=== PATIENT | male | born 1955 | race Caucasian/White ===

== ENCOUNTER 2019-01-01 13:00 | Emergency (ER) | payer OTHER ==
[2019-01-01] MEDS ORDERED: Acetaminophen 325 MG TAB ONE (13:50)
--- NOTE | 2019-01-01 14:13 | RAD ---
3 views left ankle: 01/01/2019 COMPARISON: None HISTORY: Ankle pain and swelling, injury FINDINGS: There is medial soft tissue swelling. The talar dome and ankle mortise appear intact. No di splaced fracture or evidence of dislocation. There is atherosclerotic calcification anteriorly at the level of the left ankle joint. There is enthesophyte formation at the origin of the plantar apone urosis. IMPRESSION: Medial soft tissue swelling. No displaced fracture or dislocation.
--- NOTE | 2019-01-01 14:57 | RAD ---
Exam: Chest one view HISTORY:Cough Comparison: None FINDINGS: Cardiac silhouette: Normal Aorta: Elongation Pulmonary vessels: Normal Costophrenic angles: Clear LUNGS: No masses or consolidation. Patchy interstitial opacities are nonspecific. Pneumothorax: None Osseous abnormalities: Old left clavicle fracture. IMPRESSION: No acute cardiopulmonary process.
[2019-01-01] MEDS ORDERED: Cephalexin 250 MG CAP ONE (15:42)
== END 2019-01-01 15:45 ==
LOC: ERS 13:00
DX: L03.116 Cellulitis of left lower limb (principal)
CPT/HCPCS: 71045; 87804

== ENCOUNTER 2019-01-03 10:59 | Inpatient (IN) | payer OTHER ==
[2019-01-03] MEDS ORDERED: Piperacillin/Tazobactam 4.5 GM VIAL ONE (11:38)
[2019-01-03 12:11] LABS: #Lymphocytes 1.7 thou/uL (1.20-3.40); #Monocytes 1.9 thou/uL (0.11-0.59); #Neutrophils 12.7 thou/uL (1.40-6.50); %Basophils 0.2 % (0.0-1.0); %Eosinophils 0.1 % (0.0-10.0); %Lymphocytes 10.5 % (21.0-51.0); %Monocytes 11.4 % (0.0-10.0); %Neutrophils 77.7 % (42.0-75.0); Hemoglobin 12.6 g/dL (14.0-18.0); Mean Corpuscular Hemoglobin 30.2 pg (27.0-31.0); Mean Corpuscular Volume 91.4 fL (78.0-98.0); Mean Platelet Volume 9.2 fL (7.4-10.4); Platelet Count 207 thou/uL (130-400); RBC Distribution Width 11.3 % (11.5-14.5); Red Blood Cell (RBC) Count 4.16 mill/uL (4.70-6.10); White Blood Cell (WBC) Count 16.3 thou/uL (4.8-10.8)
[2019-01-03 12:34] LABS: ALT (SGPT) 18 U/L (8-55); AST (SGOT) 21 U/L (5-34); Albumin 3.7 g/dL (3.4-4.8); Alkaline Phosphatase 76 U/L (40-110); Anion Gap 13 mmol/L (10-20); BUN (Urea Nitrogen) 13 mg/dL (8.4-25.7); Bilirubin, Total 0.6 mg/dL (0.2-1.2); Calc. Creatinine Clearance 0 mL/min (70-130); Carbon Dioxide 25 mmol/L (23-31); Chloride 97 mmol/L (98-107); Estimated GFR-MDRD 72; Globulin 3.5 g/dL (2.4-3.5); Glucose 105 mg/dL (80-115); Potassium 3.6 mmol/L (3.5-5.1); Protein, Total 7.2 g/dL (5.8-8.1); Sodium 131 mmol/L (136-145)
[2019-01-03] MEDS ORDERED: HYDROcodone/Acetaminophen 5/325 mg Tablet ONE (13:51)
[2019-01-03] MEDS ORDERED: Ondansetron ODT 4 MG TAB PO PRN (14:05)
[2019-01-03] MEDS ORDERED: Senokot S 8.6-50 MG TAB PO PRN (14:05)
[2019-01-03 16:19] VITALS: BMI 27.8
--- NOTE | 2019-01-03 16:52 | PDOC.EVN ---
Event Note - Event Note Event Note: Date/Time: 01/03/19 0396 I personally performed or re-performed the physical examination and medical decision making. I have verified all resident documentation or findings, including history, physical exam and/or medical decision making. Please see Dr. Hampton's H&P for additional details. In summary, patient is a 63 yo WM with an unremarkable PMH who presents with a CC of left leg redness and pain that has been present and worsening for 1 week. Reports fever/chills. Was seen in ER 2 days ago and d/c on keflex. Patient did not improve and returned to ER today. ON exam, marked erythema and warmth in lower left leg with streaking into medial left thigh. Exam otherwise unremarkable. Labs show elevated WBC at 16. Na 131. Plan to admit to medical for cellulitis, failed outpatient abx. Start vanc and clinda. I suspect this is group A strep. Will monitor for signs of improvement. Likely needs 2-3 days of IV abx therapy.
[2019-01-03] MEDS: Clindamycin/D5W 300 MG/50 ML BAG IVPB SCH ×2 (17:31→23:35)
[2019-01-03] MEDS: Acetaminophen 325 MG TAB PO PRN (20:47)
--- NOTE | 2019-01-04 | HP ---
RESIDENT: Mathew Hampton DO HISTORY OF PRESENT ILLNESS: This is a 63-year-old male, who [facility] complaint of left lower extremity redness and pain. He was seen in the emergency room 2 days ago and was started on Keflex. However, since then, redness and pain has increased. The patient states that approximately 1 week ago, he hit his leg on a bunk which did result in a bruise. Since then, that bruise has become red and started to expand. The patient also complains of some chills associated with the redness. In the ER, the patient was noted to have significant redness which extended up his legs along with an elevated white count. The patient was given vanc and Zosyn in the emergency room and called for admission. PAST MEDICAL HISTORY: 1. BPH PAST SURGICAL HISTORY: None. SOCIAL HISTORY: The patient denies smoking, alcohol, or recreational drug use. FAMILY HISTORY: Noncontributory. CURRENT MEDS: 1. Keflex 500mg QID 2. terazosin 2mg 3. Tylenol 500mg TID PRN ALLERGIES: None REVIEW OF SYSTEMS: GENERAL: The patient complains of chills. Denies fever or fatigue. HEENT: Denies nasal congestion, sore throat, headache, change in vision. CV: The patient denies chest pain, palpitations. RESPIRATORY: The patient denies cough, shortness of breath, wheezing. Abdomen: The patient denies nausea, vomiting, diarrhea, or constipation. Extremities: The patient complains of left lower extremity pain and redness. The patient denies numbness, tingling, or loss of strength. NEUROLOGIC: The patient denies double vision, change in vision, peripheral weakness, numbness. PHYSICAL EXAMINATION: VITAL SIGNS: Temp 98.3, pulse 81, respiratory rate 18, O2 saturation 97% on room air, blood pressure 139/86. GENERAL: The patient is alert and oriented, in no acute distress. HEENT: Normocephalic, atraumatic. NECK: Supple. CARDIOVASCULAR: Regular rate and rhythm. No murmur. RESPIRATORY: Clear to auscultation bilaterally. ABDOMEN: Soft, tender, nondistended. No guarding. NEUROLOGIC: Cranial nerves 2 through 12 are grossly intact. No focal neurological deficits. EXTREMITIES: Upper extremities are grossly normal. Right lower extremity is normal. Left lower extremity is erythematous starting at the ankle and moving upwards with streaking into the medial thigh. This area is warm to touch and tender to palpation. There is no area of fluctuance or purulent drainage. Point of care ultrasound shows no appreciable subcutaneous fluid collection. LABORATORY DATA: White count 16.3, hemoglobin 12.6, hematocrit 38.0, platelets 207, neutrophils 77.7%. Sodium 131, potassium 3.6, chloride 97, carbon dioxide 25, creatinine 1.03, glucose 105, lactic acid 1.0, calcium 9.0, total bilirubin 0.6 , AST 21, ALT 18, alkaline phosphatase 76, total serum protein 2.2, albumin is 3.7. ASSESSMENT AND PLAN: This is a 63-year-old male, who is being admitted for cellulitis with failure of outpatient antibiotics. 1. Cellulitis. Continue vancomycin and we will discontinue Zosyn and we will add clindamycin. Vanc trough to be scheduled 1 hour before the 1st dose of vanc dosed at 15 mg per kg q.12. 2. No indication for surgical involvement at this time. There does not appear to be an abscess. 3. Normocytic anemia, this is mild and asymptomatic. We will continue to monitor. 4. Diet regular. 5. Code full. 6. DVT Prophylaxis, Lovenox. Disposition: The patient is stable. We would expect the patient to recover quickly with 2 to 3 days of IV antibiotics. ATTENDING ADDENDUM: Agree w/ documentation. See my event note for further details. Job ID: [id number] MTDD
[2019-01-04] MEDS: Vancomycin HCl 1.25 GM in Sodium Chloride 0.9% 250 ML 250 ML IVPB SCH ×2 (00:15→14:32)
[2019-01-04] MEDS: Clindamycin/D5W 300 MG/50 ML BAG IVPB SCH ×3 (05:19→17:50)
[2019-01-04 06:26] LABS: #Eosinphils 0.1 thou/uL (0.0-0.7); #Lymphocytes 1.6 thou/uL (1.20-3.40); #Monocytes 1.4 thou/uL (0.11-0.59); #Neutrophils 10.1 thou/uL (1.40-6.50); %Basophils 0.2 % (0.0-1.0); %Eosinophils 0.8 % (0.0-10.0); %Lymphocytes 12.2 % (21.0-51.0); %Monocytes 10.5 % (0.0-10.0); %Neutrophils 76.3 % (42.0-75.0); Hemoglobin 12.3 g/dL (14.0-18.0); Mean Corpuscular HGB CONC 32.9 g/dL (32.0-36.0); Mean Corpuscular Hemoglobin 30.3 pg (27.0-31.0); Mean Platelet Volume 8.8 fL (7.4-10.4); Platelet Count 228 thou/uL (130-400); RBC Distribution Width 11.4 % (11.5-14.5); Red Blood Cell (RBC) Count 4.06 mill/uL (4.70-6.10); White Blood Cell (WBC) Count 13.3 thou/uL (4.8-10.8)
--- NOTE | 2019-01-04 06:34 | PDOC.FM ---
- Subjective Subjective: Feeling well this morning. No overnight events. Denies fevers, chills, nausea, vomiting, diarrhea. - Objective MAR Reviewed: Yes Vital Signs & Weight: Vital Signs (12 hours) Temp Pulse Resp BP Pulse Ox 01/04/19 05:26 98.8 F 80 18 151/92 H 94 L 01/04/19 00:00 98.2 F 80 18 102/65 94 L 01/03/19 20:45 95 01/03/19 20:00 98.2 F 85 18 103/64 95 Weight Weight 85.638 kg I&O: 01/02/19 01/03/19 01/04/19 06:59 06:59 06:59 Intake Total 1130 Balance 1130 Result Diagrams: 01/04/19 06:09 01/04/19 06:09 Phys Exam - Physical Examination Constitutional: NAD HEENT: moist MMs Neck: supple Respiratory: no wheezing, clear to auscultation bilateral Cardiovascular: RRR, no significant murmur Gastrointestinal: soft, non-tender, positive bowel sounds Musculoskeletal: no edema, pulses present Neurological: non-focal, moves all 4 limbs Psychiatric: normal affect, A&O x 3 Deviation from normal: left lower extremity redness and warmth. Dorsalis pedis 2 + -: Improved from level of demarcation drawn yesterday Dx/Plan - Plan Plan: Cellulitis failed outpt antibiotics - Keflex outpt - Continue Vanc and Clinda - Blood cxs pending, if neg at 48hrs can transition to PO antibiotics Normocytic anemia - Can be worked up outpt Code Status: FULL DVT ppx: Lovenox Addendum - Attending - Attending Attestation Date/Time: 01/04/19 3927 I personally evaluated the patient and discussed the management with Dr. Grande I agree with the History, Examination, Assessment and Plan documented above with any addition or exceptions noted below. Cellulitis improving with IV antibx. Continue inpatient until able to transition to PO. Treat edema conservatively. Add samina wrap. Elevate. ABrayMD
[2019-01-04 06:50] LABS: ALT (SGPT) 19 U/L (8-55); AST (SGOT) 19 U/L (5-34); Albumin 3.4 g/dL (3.4-4.8); Alkaline Phosphatase 67 U/L (40-110); Anion Gap 12 mmol/L (10-20); BUN (Urea Nitrogen) 11 mg/dL (8.4-25.7); Bilirubin, Total 0.5 mg/dL (0.2-1.2); Calc. Creatinine Clearance 103 mL/min (70-130); Calcium 8.9 mg/dL (7.8-10.44); Carbon Dioxide 28 mmol/L (23-31); Chloride 101 mmol/L (98-107); Estimated GFR-MDRD 88; Globulin 3.5 g/dL (2.4-3.5); Glucose 113 mg/dL (80-115); Potassium 4.2 mmol/L (3.5-5.1); Protein, Total 6.9 g/dL (5.8-8.1); Sodium 137 mmol/L (136-145)
[2019-01-04] MEDS ORDERED: Enoxaparin Sodium 30 MG/0.3 ML SYRINGE SC SCH (09:00)
[2019-01-04] MEDS ORDERED: FLU VACC TS2019-20(65YR UP)/PF 180 MCG/0.5 ML SYRINGE IM ONE (09:00)
[2019-01-04] MEDS ORDERED: Prevnar 13-Val Conj/PF 0.5 ML SYRINGE IM ONE (09:00)
[2019-01-04] MEDS: Enoxaparin Sodium 40 MG/0.4 ML SYRINGE SC SCH (09:54)
[2019-01-04] MEDS: Clotrimazole 1 % Cream 30 GM TUBE TOP SCH (21:00)
[2019-01-04] MEDS: Acetaminophen 325 MG TAB PO PRN (21:01)
[2019-01-05] MEDS: Clindamycin/D5W 300 MG/50 ML BAG IVPB SCH ×5 (00:23→23:43)
[2019-01-05] MEDS: Vancomycin HCl 1.25 GM in Sodium Chloride 0.9% 250 ML 250 ML IVPB SCH ×3 (01:30→16:47)
[2019-01-05] MEDS: Acetaminophen 325 MG TAB PO PRN ×3 (05:35→23:50)
--- NOTE | 2019-01-05 08:02 | PDOC.FM ---
- Subjective Subjective: Doing well. Reports swelling of leg with cellulitis that is painful but medications help. Handcuffs are digging into his wrists, would benefit from dressings underneath. - Objective MAR Reviewed: Yes Vital Signs & Weight: Vital Signs (12 hours) Temp Pulse Resp BP Pulse Ox 01/05/19 07:13 98.8 F 83 12 133/79 92 L 01/05/19 05:19 99.0 F 78 18 154/88 H 93 L 01/05/19 00:12 98.3 F 83 18 125/76 92 L 01/04/19 20:45 94 L 01/04/19 20:09 99.2 F 89 18 147/93 H 94 L Weight Weight 85.638 kg I&O: 01/04/19 01/05/19 01/06/19 06:59 06:59 06:59 Intake Total 1130 1050 Balance 1130 1050 Result Diagrams: 01/04/19 06:09 01/04/19 06:09 Phys Exam - Physical Examination Constitutional: NAD HEENT: moist MMs Neck: supple Respiratory: no wheezing, clear to auscultation bilateral Cardiovascular: RRR, no significant murmur Gastrointestinal: soft, non-tender, positive bowel sounds left LE edema Neurological: moves all 4 limbs Psychiatric: normal affect, A&O x 3 Deviation from normal: Left LE edema, redness, warmth. Stable, no sign improvement from yesterday. Dx/Plan - Plan Plan: Left LE Cellulitis failed outpt antibiotics - Continue Vanc and Clinda - Blood cxs NGTD Normocytic anemia - Can be worked up outpt Code Status: FULL DVT ppx: Lovenox Addendum - Attending - Attending Attestation Date/Time: 01/05/19 3893 I personally evaluated the patient and discussed the management with Dr. Grande I agree with the History, Examination, Assessment and Plan documented above with any addition or exceptions noted below. Improving. Continue IV antibx. [place]
[2019-01-05] MEDS: Clotrimazole 1 % Cream 30 GM TUBE TOP SCH ×2 (08:26→19:39)
[2019-01-05] MEDS: Enoxaparin Sodium 40 MG/0.4 ML SYRINGE SC SCH (08:27)
[2019-01-06 00:22] LABS: Vancomycin, Trough 16.4 ug/mL
[2019-01-06] MEDS: Vancomycin HCl 1.25 GM in Sodium Chloride 0.9% 250 ML 250 ML IVPB SCH ×3 (01:57→16:55)
[2019-01-06] MEDS: Clindamycin/D5W 300 MG/50 ML BAG IVPB SCH ×3 (05:12→18:33)
--- NOTE | 2019-01-06 06:12 | PDOC.FM ---
- Subjective Subjective: Continues to have pain and redness in left lower leg. Was ambulating some yesterday. Denies fevers, chills, nausea, vomiting. - Objective MAR Reviewed: Yes Vital Signs & Weight: Vital Signs (12 hours) Temp Pulse Resp BP Pulse Ox 01/06/19 04:00 98.1 F 76 16 135/82 94 L 01/06/19 00:00 98.4 F 79 16 144/88 H 95 01/05/19 20:00 98.5 F 79 16 125/65 92 L Weight Weight 85.638 kg I&O: 01/04/19 01/05/19 01/06/19 06:59 06:59 06:59 Intake Total 1130 1050 780 Output Total 400 Balance 1130 1050 380 Result Diagrams: 01/04/19 06:09 01/04/19 06:09 Phys Exam - Physical Examination Constitutional: NAD HEENT: moist MMs Neck: supple Respiratory: no wheezing, clear to auscultation bilateral Cardiovascular: RRR Gastrointestinal: soft, non-tender, positive bowel sounds Musculoskeletal: pulses present, edema present (left lower leg. Wrapped with PATTI ) Neurological: moves all 4 limbs Psychiatric: normal affect, A&O x 3 Deviation from normal: LLE redness, warmth. Dx/Plan - Plan Plan: Left LE Cellulitis failed outpt antibiotics - Continue Vanc and Clinda - Blood cxs NGTD Normocytic anemia - Can be worked up outpt Code Status: FULL DVT ppx: Lovenox
[2019-01-06] MEDS: Enoxaparin Sodium 40 MG/0.4 ML SYRINGE SC SCH (08:26)
[2019-01-06] MEDS: Clotrimazole 1 % Cream 30 GM TUBE TOP SCH ×2 (08:26→22:05)
[2019-01-06] MEDS: Acetaminophen 325 MG TAB PO PRN (08:39)
--- NOTE | 2019-01-06 14:29 | PRG ---
DATE OF SERVICE: 01/06/2019 Please see the note from Dr. Grande, for which I agree. The patient comes in for cellulitis of the left lower extremity. He does sound like slowly improving on vancomycin and clindamycin. Plan is to continue with same antibiotics. Job ID: [id number]
[2019-01-07] MEDS: Acetaminophen 325 MG TAB PO PRN (00:17)
[2019-01-07] MEDS: Clindamycin/D5W 300 MG/50 ML BAG IVPB SCH ×4 (00:18→17:50)
[2019-01-07 00:39] LABS: Vancomycin, Trough 20.5 ug/mL
[2019-01-07] MEDS ORDERED: Morphine 2 MG/ML SYRINGE SLOW IVP SCH (01:00)
[2019-01-07] MEDS ORDERED: Pharmacy to Dose 1 EACH : VANC IVPB PRN (01:52)
[2019-01-07] MEDS: Vancomycin HCl 1.25 GM in Sodium Chloride 0.9% 250 ML 250 ML IVPB SCH ×3 (02:50→20:22)
--- NOTE | 2019-01-07 06:03 | PDOC.FM ---
- Subjective Subjective: No overnight events. Slept well. Voiding and Stooling. Continues to report pain and redness of left lower extremity. - Objective MAR Reviewed: Yes Vital Signs & Weight: Vital Signs (12 hours) Temp Pulse Resp BP Pulse Ox 01/07/19 04:00 98.3 F 75 18 152/84 H 93 L 01/07/19 00:00 98.3 F 78 16 145/85 H 95 01/06/19 20:00 98.6 F 80 16 132/80 94 L Weight Weight 85.638 kg I&O: 01/05/19 01/06/19 01/07/19 06:59 06:59 06:59 Intake Total 4109 501 3883 Output Total 400 Balance 7196 476 6681 Result Diagrams: 01/04/19 06:09 01/04/19 06:09 Phys Exam - Physical Examination Constitutional: NAD HEENT: moist MMs Neck: supple Respiratory: no wheezing, clear to auscultation bilateral Cardiovascular: RRR, no significant murmur Gastrointestinal: soft, non-tender, positive bowel sounds Left LE edema Neurological: moves all 4 limbs Psychiatric: normal affect, A&O x 3 Deviation from normal: Left LE cellulitits, improved from line of demarcation yesterday Dx/Plan - Plan Plan: Left LE Cellulitis failed outpt antibiotics - Continue Vanc and Clinda - Blood cxs NGTD Normocytic anemia - Can be worked up outpt Code Status: FULL DVT ppx: Lovenox
[2019-01-07] MEDS: Enoxaparin Sodium 40 MG/0.4 ML SYRINGE SC SCH (08:03)
[2019-01-07] MEDS: Clotrimazole 1 % Cream 30 GM TUBE TOP SCH ×2 (08:05→20:21)
[2019-01-07] MEDS: Acetaminophen 325 MG TAB PO SCH ×5 (10:19→20:34)
[2019-01-07] MEDS: Ibuprofen 600 MG TAB PO SCH ×3 (10:19→20:21)
[2019-01-07 10:49] LABS: HIV (1/2) Antibody/Antigen Non-Reactive (NonReactive); HIV 1/2 INDEX 0.06 S/CO (<1.00); Syphilis Antibody Nonreactive (Nonreactive); Syphilis Antibody Index 0.06 S/CO (<1.00 Non-Reactive)
[2019-01-07] MEDS ORDERED: Clopidogrel Bisulfate 75 MG TAB ONE (23:46)
[2019-01-08] MEDS: Clindamycin/D5W 300 MG/50 ML BAG IVPB SCH ×5 (00:36→23:39)
[2019-01-08] MEDS: Acetaminophen 325 MG TAB PO SCH ×6 (00:37→20:24)
[2019-01-08] MEDS: Ibuprofen 600 MG TAB PO SCH ×4 (03:40→20:24)
[2019-01-08] MEDS: Vancomycin HCl 1.25 GM in Sodium Chloride 0.9% 250 ML 250 ML IVPB SCH (05:19)
--- NOTE | 2019-01-08 06:45 | PDOC.FM ---
- Subjective Subjective: Doing well this morning. Continues to have pain of left LE. Little improvement with addition of Levaquin. Voiding and stooling. Denies fever. - Objective MAR Reviewed: Yes Vital Signs & Weight: Vital Signs (12 hours) Temp Pulse Resp BP Pulse Ox 01/08/19 04:00 97.9 F 68 16 153/89 H 95 01/08/19 00:00 98.1 F 71 16 120/73 95 01/07/19 20:00 98.0 F 73 16 135/83 98 Weight Weight 85.638 kg I&O: 01/06/19 01/07/19 01/08/19 06:59 06:59 06:59 Intake Total 780 2049 360 Output Total 400 Balance 380 2049 360 Result Diagrams: 01/04/19 06:09 01/04/19 06:09 Phys Exam - Physical Examination Constitutional: NAD HEENT: moist MMs Neck: supple Respiratory: no wheezing, clear to auscultation bilateral Cardiovascular: RRR, no significant murmur Gastrointestinal: soft, non-tender, positive bowel sounds left LE edema Neurological: moves all 4 limbs Psychiatric: normal affect, A&O x 3 Deviation from normal: No improvement in redness/warmth from yesterday. Dx/Plan - Plan Plan: Left LE Cellulitis failed outpt antibiotics - Continue Vanc, Clinda, Levaquin. Levaquin added for pseudomonas coverage as cellulitis has not been clinically improving despite 5 days of Vanc and Clinda. - Blood cxs NGTD - Repeat ESR, initial neg. Consider US to eval for abscess however no fluctuance on exam. Normocytic anemia - Can be worked up outpt Code Status: FULL DVT ppx: Lovenox Addendum - Attending - Attending Attestation Date/Time: 01/08/19 7386 I personally evaluated the patient and discussed the management with Dr. Grande. I agree with the History, Examination, Assessment and Plan documented above with any addition or exceptions noted below. This is my first day seeing the cellulitis but per report, little improvement since yesterday. Looks like small pustule on medial ankle. Getting u/s to look for any drainable abscess. Continue broad spectrum antibiotics.
[2019-01-08] MEDS: Enoxaparin Sodium 40 MG/0.4 ML SYRINGE SC SCH (08:35)
[2019-01-08] MEDS: Clotrimazole 1 % Cream 30 GM TUBE TOP SCH ×2 (08:35→20:24)
--- NOTE | 2019-01-08 11:19 | ULT ---
SOFT TISSUE ULTRASOUND: HISTORY: Evaluate for fluid. Trauma. TECHNIQUE: Targeted sonographic imaging of the region was performed. Static images were reviewed for dictation. FINDINGS: There is evidence of soft tissue swelling. There is a well circumscribed anechoic focus measuring 3.9 x 0.8 cm. Fluid collection versus a resolving hematoma are differential considerations. There is no evidence of vascular flow. IMPRESSION: 1. Soft tissue swelling 2. Resolving hematoma versus fluid collection in the region of concern. Fluid collection may be infec susu. Correlate clinically for abscess. Transcribed Date/Time: 01/08/2019 11:20 AM
[2019-01-08] MEDS ORDERED: Clopidogrel Bisulfate 75 MG TAB ONE (12:20)
[2019-01-08 12:30] LABS: Vancomycin, Trough 26.4 ug/mL
--- NOTE | 2019-01-08 13:56 | PRG ---
DATE OF SERVICE: 01/07/2019 Please see note from the residents, for which I agree. Note from Dr. Grande. The patient was seen, evaluated, discussed, and examined with residents by bedside. Cellulitis is just not really responding. Still quite a bit erythema in the left lieberman area. Indurated, but nothing is fluctuant. Pulses, no cords. Negative Homans. May switch to refractory cellulitis that we do not have any bacterial identification on, so we will add quinolone for better Pseudomonas coverage and certainly if it does not respond Infectious Disease doctor involve, unfortunately the only one we have is currently out of town, but see how he currently responds to the addition of the Levaquin. We will continue the same vancomycin and clindamycin. Job ID: [id number]
[2019-01-09] MEDS: Acetaminophen 325 MG TAB PO SCH ×6 (01:06→20:26)
[2019-01-09] MEDS: Ibuprofen 600 MG TAB PO SCH ×4 (02:58→20:26)
[2019-01-09] MEDS: Clindamycin/D5W 300 MG/50 ML BAG IVPB SCH ×4 (05:14→23:57)
--- NOTE | 2019-01-09 07:18 | PDOC.FM ---
- Subjective Subjective: No overnight events. NPO for I&D today. Continues to have pain and redness of Left LE. Denies fevers, chills. - Objective MAR Reviewed: Yes Vital Signs & Weight: Vital Signs (12 hours) Temp Pulse Resp BP Pulse Ox 01/08/19 20:10 97 01/08/19 20:00 97.8 F 76 19 135/94 H 97 Weight Weight 85.638 kg I&O: 01/08/19 01/09/19 01/10/19 06:59 06:59 06:59 Intake Total 3600 480 Balance 3600 480 Result Diagrams: 01/09/19 07:41 01/09/19 07:41 Phys Exam - Physical Examination Constitutional: NAD HEENT: moist MMs Neck: supple Respiratory: no wheezing, clear to auscultation bilateral Cardiovascular: RRR, no significant murmur Gastrointestinal: soft, non-tender, positive bowel sounds left LE edema Neurological: moves all 4 limbs Psychiatric: normal affect, A&O x 3 Deviation from normal: left LE warmth and erythema, worst medial ankle Dx/Plan - Plan Plan: Left LE Cellulitis failed outpt antibiotics - Continue Vanc, Clinda. D/c Levaquin - Blood cxs NGTD - US with 3.9cm x 0.8cm fluid collection, Dr Dao consulted. Plan for I&D today. Normocytic anemia - Can be worked up outpt Code Status: FULL DVT ppx: Lovenox Addendum - Attending - Attending Attestation Date/Time: 01/09/19 6562 I personally evaluated the patient and discussed the management with Dr. Grande. I agree with the History, Examination, Assessment and Plan documented above with any addition or exceptions noted below. U/s shows possible abscess. Gen surg is consulted. No significant change in erythema of the left leg. Continue antibiotics.
[2019-01-09 08:19] LABS: #Eosinphils 0.4 thou/uL (0.0-0.7); #Lymphocytes 1.5 thou/uL (1.20-3.40); #Monocytes 0.7 thou/uL (0.11-0.59); #Neutrophils 4.3 thou/uL (1.40-6.50); %Basophils 0.3 % (0.0-1.0); %Monocytes 9.5 % (0.0-10.0); %Neutrophils 62.2 % (42.0-75.0); Hemoglobin 13.4 g/dL (14.0-18.0); Mean Corpuscular HGB CONC 33.1 g/dL (32.0-36.0); Mean Corpuscular Hemoglobin 30.8 pg (27.0-31.0); Mean Corpuscular Volume 93.1 fL (78.0-98.0); Mean Platelet Volume 8.1 fL (7.4-10.4); Platelet Count 426 thou/uL (130-400); RBC Distribution Width 11.5 % (11.5-14.5); Red Blood Cell (RBC) Count 4.34 mill/uL (4.70-6.10); White Blood Cell (WBC) Count 6.9 thou/uL (4.8-10.8)
[2019-01-09 08:29] LABS: Anion Gap 13 mmol/L (10-20); BUN (Urea Nitrogen) 13 mg/dL (8.4-25.7); Calc. Creatinine Clearance 107 mL/min (70-130); Calcium 9.2 mg/dL (7.8-10.44); Carbon Dioxide 26 mmol/L (23-31); Chloride 104 mmol/L (98-107); Estimated GFR-MDRD Greater than 90; Glucose 91 mg/dL (80-115); Potassium 4.7 mmol/L (3.5-5.1); Sodium 138 mmol/L (136-145)
[2019-01-09] MEDS: Enoxaparin Sodium 40 MG/0.4 ML SYRINGE SC SCH (08:32)
[2019-01-09] MEDS: Clotrimazole 1 % Cream 30 GM TUBE TOP SCH ×2 (08:33→20:27)
[2019-01-09 11:33] LABS: Vancomycin, Random 8.9 ug/mL (See Comment)
[2019-01-09] MEDS ORDERED: ISOVUE-370 76%-LOCM 1 ML ONE (12:00)
[2019-01-09] MEDS ORDERED: Vancomycin HCl 1.25 GM in Sodium Chloride 0.9% 250 ML 250 ML IVPB SCH (12:00)
[2019-01-09] MEDS: Vancomycin HCl 1.25 GM in Sodium Chloride 0.9% 250 ML 250 ML IVPB SCH (13:44)
--- NOTE | 2019-01-09 14:23 | CT ---
CT Lower Ext Lt W Con History: Pain. Abscess. Comparison: Ultrasound prior day Findings: Bones: There is no displaced fracture. There is a very subtle cortical impaction fracture o f the medial malleolus sagittal image 18. Lisfranc interval is maintained. Tendons: Extensor and flexor tendons are intact as well as the peroneal tendons. Soft tissues: There is a soft tissue collection superficial to the flexor retinaculum along the media l malleolus measuring 8 mm in transverse by 2.3 cm in AP dimension with a craniocaudal length of over 10 cm. Impression: Nondisplaced impaction fracture of the medial malleolus sagittal image 18 with overlying fascial degloving injury or hematoma superficial to the flexor retinaculum. If clinically warranted, ultrasound-guided aspiration can be performed if this does not resolve within 1-2 weeks.
--- NOTE | 2019-01-09 17:25 | PDOC.GSCN ---
Surgery Consult: [facility] - Consult details Date: 01/09/19 Time: 11:00 Reason for consult: other (Suspected abscess of the left lower extremity.) History of present illness: Mr. Song is a 63 y/o male who presented from a nearby alf due to concern of a rapidly swelling and erythematous left lower extremity. Per Mr. Song, his left lower extremity became increasingly swollen and erythematous after he struck it against the bunk bed in his cell. Since arrival at the hospital and initiation of antibiotic therapy, the area of erythema had reduced rapidly from the the level of the inguinal region to the level of the mid-tibia. Surgery Consult: [facility] Source: patient Surgery Consult: Exam - Vital signs Vital signs: Vital Signs - Most Recent Temp Pulse Resp BP Pulse Ox 98.3 F 73 18 150/80 H 95 01/09/19 07:33 01/09/19 07:33 01/09/19 07:33 01/09/19 07:33 01/09/19 08:00 - Physical Exam General: no distress, well developed, well nourished Additional exam: Left lower extremity was notable for erythema that encompassed the entire foot and extended to the level of the mid-tibia for reduced erythema. The area was marked and demonstrated a resolution of erythema previously marked as high as the level of the inguinal fold. Mild swelling was noted at the lateral malleolus. FROM of the left lower extremity, foot and all toes was intact, as was sensation. Palpation of the lateral malleolus did not reveal any significant fluctuance. Minimal TTP was noted. Surgery Consult: Meds - Medications Medications: Current Medications Acetaminophen (Tylenol) 650 mg PO Q4HR [facility] Last Admin: 01/09/19 13:39 Dose: 650 mg Clindamycin Phosphate/Dextrose (Cleocin) 300 mg IVPB Q6HR [facility] Last Admin: 01/09/19 11:59 Dose: 300 mg Clotrimazole (Lotrimin 1% Cream) 1 gm TOP BID [facility] Last Admin: 01/09/19 08:33 Dose: 1 applic Enoxaparin Sodium (Lovenox) 40 mg SC 0900 [facility] Last Admin: 01/09/19 08:32 Dose: 40 mg Vancomycin HCl 1.25 gm/ Sodium (Chloride) 250 mls @ 166.67 mls/hr IVPB 0100, 1300 [facility] Last Admin: 01/09/19 13:44 Dose: 250 mls Ibuprofen (Motrin) 600 mg PO Q6H [facility] Last Admin: 01/09/19 16:11 Dose: 600 mg Miscellaneous Medication (Pharmacy To Dose) 1 each IVPB PRN PRN PRN Reason: Pharmacy to dose Ondansetron HCl (Zofran Odt) 4 mg PO Q6H PRN PRN Reason: Nausea/Vomiting Senna/Docusate Sodium (Senokot S) 2 tab PO BID PRN PRN Reason: Constipation Sodium Chloride (Flush - Normal Saline) 10 ml IVF Q12HR [facility] Last Admin: 01/09/19 12:09 Dose: 10 ml Sodium Chloride (Flush - Normal Saline) 10 ml IVF PRN PRN PRN Reason: Saline Flush - Allergies Allergies/Adverse Reactions: Allergies Allergy/AdvReac Type Severity Reaction Status Date / Time No Known Allergies Allergy Unverified 01/03/19 14:39 Surgery Consult: Results - Labs Result Diagrams: 01/09/19 07:41 01/09/19 07:41 Lab results: Laboratory Results WBC 6.9 thou/uL (4.8-10.8) 01/09/19 07:41 RBC 4.34 mill/uL (4.70-6.10) L 01/09/19 07:41 Hgb 13.4 g/dL (14.0-18.0) L 01/09/19 07:41 Hct 40.4 % (42.0-52.0) L 01/09/19 07:41 MCV 93.1 fL (78.0-98.0) 01/09/19 07:41 MCH 30.8 pg (27.0-31.0) 01/09/19 07:41 MCHC 33.1 g/dL (32.0-36.0) 01/09/19 07:41 RDW 11.5 % (11.5-14.5) 01/09/19 07:41 Plt Count 426 thou/uL (130-400) H 01/09/19 07:41 MPV 8.1 fL (7.4-10.4) 01/09/19 07:41 Neutrophils % 62.2 % (42.0-75.0) 01/09/19 07:41 Lymphocytes % 22.0 % (21.0-51.0) 01/09/19 07:41 Monocytes % 9.5 % (0.0-10.0) 01/09/19 07:41 Eosinophils % 6.0 % (0.0-10.0) 01/09/19 07:41 Basophils % 0.3 % (0.0-1.0) 01/09/19 07:41 Neutrophils # 4.3 thou/uL (1.40-6.50) 01/09/19 07:41 Lymphocytes # 1.5 thou/uL (1.20-3.40) 01/09/19 07:41 Monocytes # 0.7 thou/uL (0.11-0.59) H 01/09/19 07:41 Eosinophils # 0.4 thou/uL (0.0-0.7) 01/09/19 07:41 Basophils # 0.0 thou/uL (0.0-0.2) 01/09/19 07:41 ESR Westergren 26 mm/hr (Less than 20) 01/08/19 11:59 Sodium 138 mmol/L (136-145) 01/09/19 07:41 Potassium 4.7 mmol/L (3.5-5.1) 01/09/19 07:41 Chloride 104 mmol/L (98-107) 01/09/19 07:41 Carbon Dioxide 26 mmol/L (23-31) 01/09/19 07:41 Anion Gap 13 mmol/L (10-20) 01/09/19 07:41 BUN 13 mg/dL (8.4-25.7) 01/09/19 07:41 Creatinine 0.83 mg/dL (0.7-1.3) 01/09/19 07:41 Estimated GFR (MDRD) Greater than 90 01/09/19 07:41 Glucose 91 mg/dL (80-115) 01/09/19 07:41 Lactic Acid 1.0 mmol/L (0.5-2.2) 01/03/19 11:56 Calcium 9.2 mg/dL (7.8-10.44) 01/09/19 07:41 Total Bilirubin 0.5 mg/dL (0.2-1.2) 01/04/19 06:09 AST 19 U/L (5-34) 01/04/19 06:09 ALT 19 U/L (8-55) 01/04/19 06:09 Alkaline Phosphatase 67 U/L (40-110) 01/04/19 06:09 Serum Total Protein 6.9 g/dL (5.8-8.1) 01/04/19 06:09 Albumin 3.4 g/dL (3.4-4.8) 01/04/19 06:09 Globulin 3.5 g/dL (2.4-3.5) 01/04/19 06:09 Albumin/Globulin Ratio 1.0 g/dL (1.2-2.2) L 01/04/19 06:09 Procalcitonin 0.25 ng/mL 01/04/19 06:09 Vancomycin Trough 26.4 ug/mL 01/08/19 11:59 Random Vancomycin 8.9 ug/mL (See Comment) 01/09/19 07:41 Syphilis IgG/IgM Ab Nonreactive (Nonreactive) 01/07/19 10:02 HIV 1&2 Antigen & Ab Non-Reactive (NonReactive) 01/07/19 10:02 Surgery Consult: A/P - Plan Plan: Area of erythema and swelling on left lower extremity is most likely resultant from a resolving hematoma. Recommend warm compresses and continued antibiotic therapy. If no resolution, recommend drainage of area and subsequent Gram Stain and culture. Consider surgical intervention only if resolution is not obtained with the aforementioned plan. Dr. Kane Dao personally evaluated this patient and agrees with the aforementioned assessment and plan.
[2019-01-10] MEDS: Acetaminophen 325 MG TAB PO SCH ×6 (00:55→20:26)
[2019-01-10] MEDS: Vancomycin HCl 1.25 GM in Sodium Chloride 0.9% 250 ML 250 ML IVPB SCH ×2 (00:55→12:56)
[2019-01-10] MEDS: Ibuprofen 600 MG TAB PO SCH ×4 (03:09→20:26)
[2019-01-10] MEDS: Clindamycin/D5W 300 MG/50 ML BAG IVPB SCH ×3 (05:13→17:36)
--- NOTE | 2019-01-10 06:55 | PDOC.FM ---
- Subjective Subjective: No overnight events. Slept well. Continues to have pain, redness of left lower extremity. Denies fever, chills. - Objective MAR Reviewed: Yes Vital Signs & Weight: Vital Signs (12 hours) Temp Pulse Resp BP Pulse Ox 01/09/19 20:00 98.0 F 73 19 129/84 94 L Weight Weight 85.638 kg I&O: 01/08/19 01/09/19 01/10/19 06:59 06:59 06:59 Intake Total 3600 480 Balance 3600 480 Result Diagrams: 01/09/19 07:41 01/09/19 07:41 Phys Exam - Physical Examination Constitutional: NAD HEENT: moist MMs Neck: supple Respiratory: no wheezing, clear to auscultation bilateral Cardiovascular: RRR, no significant murmur Gastrointestinal: soft, non-tender left LE edema Neurological: moves all 4 limbs Psychiatric: normal affect, A&O x 3 Deviation from normal: left LE cellulitis Dx/Plan - Plan Plan: Left LE Cellulitis failed outpt antibiotics - Continue Vanc, Clinda - Blood cxs neg - US with 3.9cm x 0.8cm fluid collection, Dr Dao consulted, no surgical interventions at this time - Rapid improvement over first 24hrs of starting antibiotics but very little improvement since 01/04 despite warm compresses starting 01/07 and antifungals. Pt briefly on addition of levaquin with little improvement as well. Normocytic anemia - Can be worked up outpt Code Status: FULL DVT ppx: Lovenox Addendum - Attending - Attending Attestation Date/Time: 01/10/19 1046 I personally evaluated the patient and discussed the management with Dr. Grande. I agree with the History, Examination, Assessment and Plan documented above with any addition or exceptions noted below. The patient remains stable. He has been seen by ortho for malleolar fracture and notes the joint is stable. Dr. Narayanan will do an I/D with Dr. Grande at bedside this morning. Continue antibiotics. Await culture results.
[2019-01-10] MEDS ORDERED: Lidocaine 1% w/Epinephrine 1:100K 20 ML VIAL ONE (07:58)
--- NOTE | 2019-01-10 08:13 | PDOC.OP ---
Operative Note - Operative Note Operative Note: PRE-OP DIAGNOSIS: Abscess POST-OP DIAGNOSIS: Same PROCEDURE: Aspiration of abscess Performing Physician: Sophia Grande MD PGY-2 Supervising Physician: Dr Narayanan PROCEDURE: The area was prepared in the usual manner. Approx 5ml aspirated of cloudy sanguineous fluid. This was sent for gram stain and culture. Followup: The patient tolerated the procedure well without complications
[2019-01-10] MEDS: Enoxaparin Sodium 40 MG/0.4 ML SYRINGE SC SCH (08:31)
[2019-01-10] MEDS: Clotrimazole 1 % Cream 30 GM TUBE TOP SCH ×2 (08:32→20:29)
--- NOTE | 2019-01-10 09:58 | CON ---
DATE OF CONSULTATION: This is Lenard Mcfarlane PA-C dictating a report for Crow Gruber MD. HISTORY OF PRESENT ILLNESS: We were asked by General Surgery, Dr. Narayanan and Family Practice residents to see the patient. The patient has been in the hospital since about the of the month with a left lower extremity cellulitis. Apparently, he hit his ankle on the bunkbed and had a little minute depression fracture. He also had what sounds like a little bit of flash or petechia, blood filling around the ankle minutes soon got worse, and had an ensuing cellulitis that climbed up his leg. After some antibiotics for a few days, the cellulitis that was up towards the groin is now just down to the proximal tibia and into the ankle. He had a little bit to drainage yesterday after needle aspiration that was cloudy, bloody fluid, and then today, had another aspirate for cultures and sensitivities. I spoke with the patient regarding his fracture. There is not much orthopedically needs to be done. I spoke with Dr. Narayanan, also that the joint was stable and he needed no orthopedic treatment at this time. PAST MEDICAL HISTORY: BPH. PAST SURGICAL HISTORY: None. SOCIAL HISTORY: Currently incarcerated, but no smoking, alcohol, or recreational drug use at this time. FAMILY HISTORY: For this visit is noncontributory. CURRENT MEDS: He is on, 1. Keflex. 2. Terazosin. 3. Tylenol. 4. New IV antibiotics given by the residents. ALLERGIES: NO KNOWN DRUG ALLERGIES. REVIEW OF SYSTEMS: Pain in that left lower extremity with erythema and edema, otherwise denies any other positive review of systems. PHYSICAL EXAMINATION: GENERAL: Well-nourished, well-developed male, alert, pleasant, in no acute distress. Speech clear. Affect pleasant. Answer questions appropriately. He was alert and oriented x3. HEENT: Normal exam. Face is symmetric. Tongue midline. NECK: Supple. Trachea midline. EXTREMITIES: Upper extremities; equal size, shape, symmetry. Normal bulk, tone, and currently in shackles. Lower extremities; equal size, shape, symmetry. Normal bulk and tone with the exception of left lower extremity about the distal third of the left lower extremity into the ankle is reddened, but you can see the outline of the lines up the left thigh and the erythema has subsided quite a bit with antibiotic treatment. He is able to flex and extend his foot without any difficulty. I would check stability of the ankle and found no pain with this procedure and/or instability. DP and PT pulses are present bilaterally and equal. ASSESSMENT: Cellulitis, light depression fracture noted on CT and x-ray. PLAN: I spoke with Dr. Gruber. There is no orthopedic intervention needed. I relayed this to Dr. Narayanan and residents. I think their plan will be to do a bedside I and D, may be place a wick in there. Let them both know we are available, if there are any joint issues in the future. Otherwise, Orthopedics will sign off on the patient. Job ID: [id number]
--- NOTE | 2019-01-10 10:25 | PDOC.OP ---
Operative Note - Operative Note Operative Note: PRE-OP DIAGNOSIS: Abscess/Hematoma POST-OP DIAGNOSIS: Abscess/Hematoma PROCEDURE: Incision and drainage of abscess Performing Physician: Dr Narayanan PROCEDURE: The area was prepared in the usual manner. The site was anesthetized with 1% lidocaine with epinephrine. A linear incision along the local skin lines was made and the sanguineous purulent material expressed. The abcess was explored thoroughly and sequestered pockets were opened. Bleeding was minimal. Packed with gauze and wrapped with kerlix. Followup: The patient tolerated the procedure well without complications.
[2019-01-11] MEDS: Acetaminophen 325 MG TAB PO SCH ×6 (00:14→20:16)
[2019-01-11] MEDS: Clindamycin/D5W 300 MG/50 ML BAG IVPB SCH ×2 (00:14→05:25)
[2019-01-11 00:33] LABS: Vancomycin, Trough 14.8 ug/mL
[2019-01-11] MEDS: Vancomycin HCl 1.25 GM in Sodium Chloride 0.9% 250 ML 250 ML IVPB SCH ×2 (00:53→13:36)
[2019-01-11] MEDS: Ibuprofen 600 MG TAB PO SCH ×4 (03:14→20:16)
--- NOTE | 2019-01-11 06:14 | PDOC.FM ---
- Subjective Subjective: No overnight events. Voiding and stooling. Denies fever, chills. - Objective MAR Reviewed: Yes Vital Signs & Weight: Vital Signs (12 hours) Temp Pulse Resp BP Pulse Ox 01/10/19 19:39 98.2 F 75 18 122/70 95 Weight Admit Weight 85.638 kg Weight 85.638 kg I&O: 01/09/19 01/10/19 01/11/19 06:59 06:59 06:59 Intake Total 480 Balance 480 Result Diagrams: 01/09/19 07:41 01/09/19 07:41 Phys Exam - Physical Examination Constitutional: NAD HEENT: moist MMs Neck: supple Respiratory: no wheezing, clear to auscultation bilateral Cardiovascular: RRR, no significant murmur Gastrointestinal: soft, non-tender, positive bowel sounds Musculoskeletal: pulses present Neurological: moves all 4 limbs Psychiatric: normal affect, A&O x 3 Deviation from normal: left LE celluitis Dx/Plan - Plan Plan: Left LE Cellulitis failed outpt antibiotics - Continue Vanc, Clinda - Blood cxs neg - US with 3.9cm x 0.8cm fluid collection - CT:Nondisplaced fracture of medial malleolus w/ overlying fascial degloving injury or hematoma - Ortho consulted, has signed off - I&D 01/10, cx's ordered - Wound care consulted Normocytic anemia - Can be worked up outpt Code Status: FULL DVT ppx: Lovenox Addendum - Attending - Attending Attestation Date/Time: 01/11/19 6004 I personally evaluated the patient and discussed the management with Dr. Grande. I agree with the History, Examination, Assessment and Plan documented above with any addition or exceptions noted below. Wound care has been consulted. Continue antibiotics. Awaiting cultures. Will coordinate with case mgmt for d/c planning.
[2019-01-11] MEDS: Enoxaparin Sodium 40 MG/0.4 ML SYRINGE SC SCH (08:37)
[2019-01-11] MEDS: Clotrimazole 1 % Cream 30 GM TUBE TOP SCH ×2 (08:38→20:14)
[2019-01-11] MEDS: Clindamycin/D5W 600 MG in Premix Bag 1 BAG IVPB SCH ×2 (11:19→17:22)
[2019-01-11] MEDS: Tetrahydrozoline 0.05% OPTH 15 ML BOT EA EYE SCH ×2 (13:37→20:17)
--- NOTE | 2019-01-11 15:15 | PRG ---
DATE OF SERVICE: 01/11/2019 Kt Song is doing well today. Yesterday, he had incision and drainage of his left ankle abscess. Cultures are pending. Preliminary results revealed GPC clusters. Blood cultures negative. We would recommend wash the foot with soap and water daily and the shower or bath and placing a saline wet-to-dry dressing. I would expect this wound to heal quickly, already cellulitis has improved. Job ID: [id number]
--- NOTE | 2019-01-11 17:33 | CON ---
DATE OF CONSULTATION: 01/10/2019 HISTORY OF PRESENT ILLNESS: Kt Song is a 63-year-old male, skilled nursing inmate, who injured his left ankle on the bed railing. He developed a cellulitis. X-rays revealed a fracture of the medial malleolus, impacted. He has been on intravenous antibiotics since admission, 01/03/2019. He has an NG modalities performed. His cellulitis is not improving, thus I was asked to see him. ALLERGIES: NONE. SOCIAL HISTORY: Tobacco, none. Alcohol, none. MEDICATIONS: 1. Fiber laxative. 2. Terazosin. 3. Acetaminophen. PAST SURGICAL HISTORY: Noncontributory. PAST MEDICAL HISTORY: BPH. REVIEW OF SYSTEMS: Ten-point noncontributory. PHYSICAL EXAMINATION: VITAL SIGNS: Height 5 feet 8 inches, 180 pounds, BMI 27, temperature 97.8, heart rate 86, and blood pressure 146/95. LUNGS: Clear to auscultation. CARDIAC: Regular rate and rhythm without murmur or gallop. ABDOMEN: Soft and nontender. EXTREMITIES: Palpable femoral and pedal pulses. The patient has cellulitis in the left foot, mainly medial, extending to the lower leg. He has a fluctuant area just superior and posterior to the medial malleolus. IMAGING STUDIES: Lower extremity CAT scan reveals a medial malleolar impacted fracture. ASSESSMENT AND PLAN: Cellulitis, left leg. I initially saw him and noting that he has a medial malleolar fracture. I asked Orthopedics to see him. There was nothing interventional that he can do, they felt it was safe to drain this area. At the bedside using alcohol pad, we cleansed the area and aspirated some purulent bloody material. We then sent that for culture. Later returned after discussed with Orthopedics and the in that side of the area, performed incision and drainage. There was a fluid collection, it was cloudy bloody, again sent for culture. Their loculations broken down and gauze dressing applied. The patient tolerated the procedure well. At this point, I would recommend wound care consist of daily washing the foot with soap and water in the bath or shower and apply a saline wet-to-dry dressing. Once his cellulitis is improved, expect by tomorrow, he can be discharged home on oral antibiotics. Hopefully, sensitivities will be back by the end. Job ID: [id number]
[2019-01-12] MEDS: Vancomycin HCl 1.25 GM in Sodium Chloride 0.9% 250 ML 250 ML IVPB SCH ×2 (00:13→12:47)
[2019-01-12] MEDS: Clindamycin/D5W 600 MG in Premix Bag 1 BAG IVPB SCH ×2 (00:13→10:13)
[2019-01-12] MEDS: Acetaminophen 325 MG TAB PO SCH ×4 (00:18→12:47)
[2019-01-12] MEDS: Ibuprofen 600 MG TAB PO SCH ×3 (02:02→16:34)
--- NOTE | 2019-01-12 07:09 | PDOC.FM ---
- Subjective Subjective: No overnight events. Feeling well this morning. Denies fevers, chills. Continues to have a little pain and redness of left LE. - Objective MAR Reviewed: Yes Vital Signs & Weight: Vital Signs (12 hours) Temp Pulse Resp BP Pulse Ox 01/11/19 20:00 96 01/11/19 19:14 98.1 F 70 18 138/80 97 Weight Admit Weight 85.638 kg Weight 85.638 kg Result Diagrams: 01/09/19 07:41 01/09/19 07:41 Phys Exam - Physical Examination Constitutional: NAD HEENT: moist MMs Neck: supple Respiratory: no wheezing, clear to auscultation bilateral Cardiovascular: RRR, no significant murmur Gastrointestinal: soft, non-tender, positive bowel sounds Musculoskeletal: pulses present Neurological: moves all 4 limbs Psychiatric: normal affect, A&O x 3 Deviation from normal: left LE warmth, redness, edema. Improving Dx/Plan - Plan Plan: Left LE Cellulitis failed outpt antibiotics - Continue Vanc, Clinda - Blood cxs neg - US with 3.9cm x 0.8cm fluid collection - CT:Nondisplaced fracture of medial malleolus w/ overlying fascial degloving injury or hematoma - Ortho consulted, has signed off - I&D 01/10, cx's ordered - Wound care consulted - CM consulted, working on setting up treatment in his unit. Normocytic anemia - Can be worked up outpt Addendum - Attending - Attending Attestation Date/Time: 01/12/19 7121 I personally evaluated the patient and discussed the management with Dr. Narayanan. I agree with the History, Examination, Assessment and Plan documented above with any addition or exceptions noted below. Patient's cellulitis is improving. [facility] and finish course of antibiotics.
--- NOTE | 2019-01-12 07:40 | PRG ---
DATE OF SERVICE: 01/12/2019 Kt Song is doing well as far as his left leg. His wound was inspected and dressing changed this morning. The Nu Gauze was removed. There is still an open wound about 2 cm that is undermining superiorly and inferiorly. A normal saline wet-to-dry dressing was applied and Coban placed and held in place. There is still surrounding cellulitis, but is improved relative to yesterday. Cultures from his foot wound are pending with Gram stain demonstrating GPC in clusters. He may have delayed growth due to being on antibiotics for several days prior to the culture submission. At this point, I would continue local wound care, which should consist of daily washing the wound with soap and water and place a normal saline wet-to-dry dressing, using a Q-tip and a gauze. Job ID: [id number]
[2019-01-12] MEDS: Enoxaparin Sodium 40 MG/0.4 ML SYRINGE SC SCH (08:03)
[2019-01-12] MEDS: Tetrahydrozoline 0.05% OPTH 15 ML BOT EA EYE SCH (08:09)
[2019-01-12 08:10] VITALS: BP 126/79; TEMP 97.7
[2019-01-12 12:37] LABS: Vancomycin, Trough 15.3 ug/mL
--- NOTE | 2019-01-15 06:18 | PQF ---
[employer] Winform Viewer HARSHAL OREILLY RICHARD D MD [id number] CLINICAL DOCUMENTATION CLARIFICATION FORM: POST DISCHARGE Addendum to original discharge summary date: ____ Late entry note date: __ DATE: 01/15/2019 ATTN: ENE LANDRUM MD Please exercise your independent, professional judgment in responding to the clarification form. Clinical indicators are provided on the bottom of this form for your review Please check appropriate box(s): [ yes ] Incision and Drainage to bone with bone resection/excision/ resectional sharp [ ] Other procedure diagnosis [ ] Unable to determine For continuity of documentation, please document condition throughout progress notes and discharge summary. Thank You. CLINICAL INDICATORS - SIGNS / SYMPTOMS / LABS -Incision and drainage of abscess-OP report, 01/10, Oracio Coughlin MD -A lineal incision along the local skin lines was made the sanguineous purulent material expressed-OP report, 01/10, Oracio Coughlin MD -The abscess was explored thoroughly and sequestered pockets were opened- OP report, 01/10, Oracio Coughlin MD RISK FACTORS -Left LE cellulitis and deep abscess-Progress note, 01/13, Sejal Jensen MD TREATMENTS: -Gauze and wrapped with Kerlix - OP report, 01/10, Oracio Coughlin MD -Zosyn IV-MAR, 01/03 (This form is maintained as a part of the permanent medical record) 2014 [employer]. All Rights Reserved Adelso Estrada [not provided] [not provided] DERRICK
--- NOTE | 2019-01-15 23:52 | DIS ---
DATE OF ADMISSION: 01/03/2019 DATE OF DISCHARGE: 01/12/2019 RESIDENT: Sophia Grande MD, PGY-1. ADMITTING ATTENDING: Charles Georges MD DISCHARGE ATTENDING: Sejal Jensen MD CONSULTS: 1. General Surgery. 2. Orthopedic Surgery. PROCEDURES PERFORMED: 1. Ankle x-ray 01/01/2019, reveals soft tissue swelling. No displaced fracture or dislocation. 2. Chest x-ray 01/01/2019, no acute cardiopulmonary process. 3. Lower extremity ultrasound on 01/08/2019, soft tissue swelling, resolving hematoma versus fluid collection in the region of concern. Fluid collection may be infected. Correlate clinically for abscess. 4. Lower extremity CT 01/09/2019, nondisplaced impaction fracture of the medial malleolus, sagittal image 18 with overlying fascial degloving injury or hematoma superficial to the flexor retinaculum. If clinically warranted, ultrasound guided aspiration can be performed if this has not resolved within 1-2 weeks. 5. Aspiration of fluid collection. 6. I and D of fluid collection, left medial lower extremity. PRIMARY DIAGNOSES: 1. Left lower extremity cellulitis, failed outpatient antibiotics. 2. Infected hematoma. SECONDARY DIAGNOSIS: Normocytic anemia. DISCHARGE MEDICATIONS: 1. Clindamycin 600 mg q.8 hours. 2. Tylenol 650 mg q.4 hours scheduled. 3. Ibuprofen 600 mg q.6 hours. 4. Senokot 2 tablets b.i.d. 5. Bactrim b.i.d. x10 days. 6. Terazosin 2 mg daily. 7. Visine AC two drops each eye b.i.d. HISTORY OF PRESENT ILLNESS/HOSPITAL COURSE: Mr. Song is a 63-year-old male, who presented from senior living for left lower extremity cellulitis. He was seen in the emergency room two days prior and started on Keflex and since then, redness and pain had increased. Reported about a week prior, he hit his leg on a metal danay of his bunk bed that resulted in a bruise. Since then, the area had become red, hot, and painful. After initial evaluation, the patient did have lymphadenopathy, redness that extended up to the medial thigh as well as leukocytosis. He was started on vancomycin and Zosyn in the ED. The patient was continued on vancomycin and Clindamycin. Blood cultures were negative. Within the first 24 hours, he had decrease in the redness to the level of knee. Leukocytosis initially 16.3, 6.9 prior to discharge. Hyponatremia 131, initially 138 prior to discharge. Despite being on antibiotics since 01/01 and IV antibiotics since 01/03, on 01/08 which was day six of IV antibiotics. The redness had not dramatically improved from the level of the knee. Lower extremity ultrasound was performed that showed fluid collection, likely abscess. General Surgery was consulted and lower extremity CT was obtained showing medial malleolus fracture and aspirate of fluid collection was obtained. Orthopedic Surgery was consulted. Orthopedic Surgery recommended no operative management that it would be fine to incise and drain the fluid collection. Gram stain cultures were obtained of fluid aspirate from the incision and drainage. The patient tolerated the procedure well. Culture from aspiration grew strep pyogenes. No bacteria in fluid obtained from incision and drainage, patient has been on antibiotics for 7-8 days at this point. He is discharged back to senior living with instructions for wound care as well as p.o. antibiotics, clindamycin, and Bactrim. DISPOSITION: Stable. DISCHARGE INSTRUCTIONS: 1. Location: Home. 2. Diet: Regular. 3. Followup: Follow up with Unit physician for wound care and management of duration of antibiotics. Job ID: [id number]
== END 2019-01-12 17:46 | DRG 983 ==
LOC: EEVIPCON 10:59 → ERS 10:59 → T4-B 13:37
PROVIDERS: ADMIT Family Medicine; ATTEND Family Medicine
PROC: 0Q9 Lower Bones, Drainage (ICD-10-PCS; principal; 2019-01-10)
DX: L03.116 Cellulitis of left lower limb (principal); L02.416 Cutaneous abscess of left lower limb; D64.9 Anemia, unspecified; S82.55XA Nondisplaced fracture of medial malleolus of left tibia, initial encounter for closed fracture; N40.0 Benign prostatic hyperplasia without lower urinary tract symptoms; X58.XXXA Exposure to other specified factors, initial encounter
CPT/HCPCS: 36415; 76882; 80048; 80053; 80202; 83605; 84145; 85025; 85652; 86780; 87040; 87070; 87077; 87205; 87389; 96365; 96367; J1650; J1956; J2270; J2543; J3370; J3490; J7050; Q9966